=== PATIENT | female | born 1990 | race Caucasian/White ===

== ENCOUNTER 2019-03-19 00:22 | Emergency (ER) | payer BC ==
[~2019-03-19] VITALS: Ht 160 cm; Wt 79.8 kg
[2019-03-19 00:25] VITALS: BP 128/78
--- NOTE | 2019-03-19 01:29 | NUR ---
PT AMBULATED TO BED #5
[2019-03-19 01:35] VITALS: BP 124/83
--- NOTE | 2019-03-19 01:35 | NUR ---
PT ASSESSMENT COMPLETE. PT SITTING ON BED. BEDRAIL X1UP. WILL CONTINUE TO MONITOR.
--- NOTE | 2019-03-19 02:42 | NUR ---
Patient discharged with v/s stable. Written and verbal after care instructions given and explained. Patient alert, oriented and verbalized understanding of instructions. Ambulatory with steady gait. All questions addressed prior to discharge. ID band removed. Patient advised to follow up with PMD. Rx of PREDNISONE AND PROMETHEZINE given. Patient educated on indication of medication including possible reaction and side effects. Opportunity to ask questions provided and answered.
== END 2019-03-19 02:42 | disposition home or self-care (01) ==
LOC: MED 00:22
DX: R05 Cough (principal); J02.9 Acute pharyngitis, unspecified; R06.02 Shortness of breath; J45.909 Unspecified asthma, uncomplicated
CPT/HCPCS: 99283

== ENCOUNTER 2019-05-19 16:09 | Emergency (ER) | payer BC ==
[~2019-05-19] VITALS: Ht 160 cm; Wt 80.7 kg
[2019-05-19 16:20] VITALS: BP 126/79
--- NOTE | 2019-05-19 16:27 | NUR ---
PT AMB TO BED 11
--- NOTE | 2019-05-19 16:39 | NUR ---
refered from urgent care for flu-like symptoms. Pt. claims to have headaches, bodyaches. Pt states she received a prescription of tamiflu, ibuprofen, tylenol from Urgent care but was directed to go to ER to rule out [place] Virus. Pt. states no recent travel but states she works in a [employer] and is frequently exposed to people who's traveled out of the country. PmHx of asthma Addendum: 05/19/19 at 1642 by [facility] Pt. states " I just want to go home. " Pt. requested for an albuterol refill.
[2019-05-19 16:45] VITALS: BP 126/79
== END 2019-05-19 16:45 | disposition home or self-care (01) ==
LOC: MED 16:09
DX: B34.9 Viral infection, unspecified (principal); J45.909 Unspecified asthma, uncomplicated
CPT/HCPCS: 99283